=== PATIENT | female | born 2000 | race Two or more races ===

== ENCOUNTER 2023-08-23 01:41 | Observation (INO) | payer MEDICAID ==
[~2023-08-23] VITALS: Ht 162.6 cm; Wt 90.7 kg
[2023-08-23 03:12] LABS: Basophils # (auto) 0 10 ^3/uL (0-0.2); Basophils % (auto) 0.2 % (0.0-2.0); Eosinophils # (auto) 0.1 10 ^3/uL (0-0.8); Eosinophils % (auto) 0.7 % (0.0-7.0); Hematocrit 34.1 % (36.0-46.0); Hemoglobin 11.3 g/dL (12.2-16.2); Lymphocytes # (auto) 1.9 10 ^3/uL (0.4-5.4); Lymphocytes % (auto) 15.4 % (10.0-50.0); Mean Corpuscular Hemoglobin 30.6 pg (28.0-32.0); Mean Corpuscular Hgb Conc. 33.2 g/dL (32.0-36.0); Mean Corpuscular Volume 92.3 fL (80.0-100.0); Monocytes # (auto) 0.8 10 ^3/uL (0-1.3); Monocytes % (auto) 6.1 % (0.0-12.0); Neutrophils # (auto) 9.6 10 ^3/uL (1.6-8.6); Neutrophils % (auto) 77.6 % (37.0-80.0); Red Cell Distribution Width 14.2 % (11.8-14.3); White Blood Cell 12.4 10^3/uL (4.4-10.8)
[2023-08-23 03:13] LABS: Protein, Urine < 6.0 mg/dL (0.0-11.9)
[2023-08-23 03:14] LABS: Alanine Aminotransferase 14 U/L (7-40); Albumin 3.5 g/dL (3.2-4.8); Alkaline Phosphatase 111 U/L (46-116); Anion Gap 8 (5-15); Aspartate Aminotransferase 16 U/L (13-40); BUN/Creatinine Ratio 11.1 (10.0-20.0); Bilirubin, Total 0.3 mg/dL (0.2-1.0); Blood Urea Nitrogen 7 mg/dL (9-23); Calcium 8.8 mg/dL (8.7-10.4); Carbon Dioxide 20 mmol/L (20-30); Chloride 109 mmol/L (98-107); Glucose 111 mg/dL (74-106); Potassium 3.7 mmol/L (3.5-5.1); Sodium 137 mmol/L (136-145); Total Protein 5.6 g/dL (5.7-8.2); Uric Acid 4.7 mg/dL (3.1-7.8)
[2023-08-23 03:16] LABS: Amphetamine Screen, Urine Neg (NEGATIVE); Barbiturate Scree,Urine Neg (NEGATIVE); Benzodiazephine Screen, Urine Neg (NEGATIVE); Cannabinoid Screen, Urine Neg (NEGATIVE); Cocaine Screen, Urine Neg (NEGATIVE); Creatinine, Urine 37.04 mg/dL (30.0-125.0); Opiate Scree,Urine Neg (NEGATIVE); Phencyclidine Screen, Urine Neg (NEGATIVE); Urine Protein/Creatinine Ratio 0.16
[2023-08-23 03:28] LABS: Urine Bacteria MOD /hpf (None Seen); Urine Blood 2+ /uL (Negative); Urine Budding Yeast OCCASIONAL /hpf (None Seen); Urine Clarity Clear (Clear); Urine Color Light-Yellow (Yellow); Urine Hyaline Cast FEW /lpf (0 - 2); Urine Protein, UAD Negative (Negative); Urine Specific Gravity 1.006 (1.001-1.035); Urine Urobilinogen Normal (Negative); Urine WBC 2 /hpf (0 - 5)
[2023-08-23 03:33] LABS: INR 0.93 (0.9-1.15); Partial Thromboplastin Time 26.1 SEC (24.5-34.5); Prothrombin Time 9.9 sec (9.3-11.8)
== END 2023-08-23 04:44 | disposition home or self-care (01) ==
LOC: LDRP 01:41
PROVIDERS: ADMIT Obstetrics & Gynecology; ATTEND Obstetrics & Gynecology
DX: O21.2 Late vomiting of pregnancy (principal); O26.893 Other specified pregnancy related conditions, third trimester; M79.89 Other specified soft tissue disorders; Z79.899 Other long term (current) drug therapy; Z3A.36 36 weeks gestation of pregnancy
CPT/HCPCS: 36415; 59025; 80053; 80307; 81001; 81002; 82570; 84156; 84550; 85025; 85610; 85730; 94760; 96360; G0378

== ENCOUNTER 2023-08-30 10:14 | Observation (INO) | payer MEDICAID ==
[2023-08-30] MEDS ORDERED: PREN-96 PO (11:49)
[2023-08-30 12:05] LABS: Fern Testing Negative
== END 2023-08-30 13:30 | disposition home or self-care (01) ==
LOC: LDRP 10:14
PROVIDERS: ADMIT Obstetrics & Gynecology; ATTEND Obstetrics & Gynecology
DX: O42.92 Full-term premature rupture of membranes, unspecified as to length of time between rupture and onset of labor (principal); Z3A.37 37 weeks gestation of pregnancy
CPT/HCPCS: 59025; 76818; 81002; 84112; 94760; G0378; Q0114

== ENCOUNTER 2023-09-02 08:00 | Observation (INO) | payer MEDICAID ==
[~2023-09-02 08:00] MED LIST: PREN-96 PO
== END 2023-09-02 09:30 | disposition home or self-care (01) ==
LOC: LDRP 08:00 → UNDOADMOB 08:00 → LDRP 08:11 → UNDODISOB 09:30
PROVIDERS: ADMIT Obstetrics & Gynecology; ATTEND Obstetrics & Gynecology
DX: O41.03X0 Oligohydramnios, third trimester, not applicable or unspecified (principal); Z3A.36 36 weeks gestation of pregnancy
CPT/HCPCS: 59025; 76818; 81002; 94760; G0378

== ENCOUNTER 2023-09-06 13:50 | Observation (INO) | payer MEDICAID | END 2023-09-06 15:40 | disposition home or self-care (01) | LOC: LDRP 13:50 | PROVIDERS: ADMIT Obstetrics & Gynecology; ATTEND Obstetrics & Gynecology | DX: O41.03X0 Oligohydramnios, third trimester, not applicable or unspecified (principal); Z3A.38 38 weeks gestation of pregnancy | CPT/HCPCS: 59025; 76818; 81002; G0378 ==

== ENCOUNTER 2023-09-08 08:05 | Observation (INO) | payer MEDICAID | END 2023-09-08 09:42 | disposition home or self-care (01) | LOC: UNDOADMOB 08:05 → LDRP 08:05 → UNDODISOB 09:42 | PROVIDERS: ADMIT Obstetrics & Gynecology; ATTEND Obstetrics & Gynecology | DX: O41.03X0 Oligohydramnios, third trimester, not applicable or unspecified (principal); Z3A.38 38 weeks gestation of pregnancy | CPT/HCPCS: 59025; 76818; 81002; 94760; G0378 ==

== ENCOUNTER 2023-09-13 07:49 | Observation (INO) | payer MEDICAID | END 2023-09-13 13:27 | disposition home or self-care (01) | LOC: LDRP 12:07 | PROVIDERS: ADMIT Obstetrics & Gynecology; ATTEND Obstetrics & Gynecology | DX: O41.03X0 Oligohydramnios, third trimester, not applicable or unspecified (principal); O62.9 Abnormality of forces of labor, unspecified; Z3A.39 39 weeks gestation of pregnancy | CPT/HCPCS: 59025; 76818; 81002; 94760; G0378 ==

== ENCOUNTER 2023-09-16 14:59 | Observation (INO) | payer MEDICAID ==
[~2023-09-16] VITALS: Ht 162.6 cm; Wt 72.6 kg
[2023-09-16] MEDS: LACTATED RINGER'S 1,000 ML IV ONE (18:55)
== END 2023-09-16 20:55 | disposition home or self-care (01) ==
LOC: UNDOADMOB 16:16 → LDRP 16:16 → UNDODISOB 20:55
PROVIDERS: ADMIT Obstetrics & Gynecology; ATTEND Obstetrics & Gynecology
DX: O41.03X0 Oligohydramnios, third trimester, not applicable or unspecified (principal); O62.9 Abnormality of forces of labor, unspecified; Z3A.39 39 weeks gestation of pregnancy
CPT/HCPCS: 59025; 76815; 76818; 81002; 94760; 96360; 96361; G0378

== ENCOUNTER 2023-09-17 19:28 | Inpatient (IN) | payer MEDICAID ==
[~2023-09-17] VITALS: Ht 162.6 cm; Wt 72.6 kg
[2023-09-17] MEDS ORDERED: LIDOCAINE 2%HCL (LOCAL ANESTH.) INJ 20ML MDV IJ PRN (22:00)
[2023-09-17] MEDS ORDERED: BUTORPHANOL TARTRATE 2 MG/1 ML VIAL IV PRN ×2 (22:00)
[2023-09-17 22:50] LABS: Urine Bacteria MANY /hpf (None Seen); Urine Blood 2+ /uL (Negative); Urine Clarity Clear (Clear); Urine Hyaline Cast FEW /lpf (0 - 2); Urine Protein, UAD Negative (Negative); Urine Specific Gravity 1.004 (1.001-1.035); Urine Urobilinogen Normal (Negative); Urine WBC 1 /hpf (0 - 5); Urine pH 6.5 (5.0-9.0)
[2023-09-17 22:51] LABS: Urine Color Straw (Yellow)
[2023-09-17 22:53] LABS: Basophils # (auto) 0 10 ^3/uL (0-0.2); Basophils % (auto) 0.3 % (0.0-2.0); Eosinophils # (auto) 0.1 10 ^3/uL (0-0.8); Eosinophils % (auto) 0.4 % (0.0-7.0); Hematocrit 34.7 % (36.0-46.0); Hemoglobin 11.7 g/dL (12.2-16.2); Lymphocytes # (auto) 2.2 10 ^3/uL (0.4-5.4); Lymphocytes % (auto) 17.2 % (10.0-50.0); Mean Corpuscular Hgb Conc. 33.8 g/dL (32.0-36.0); Mean Corpuscular Volume 91.8 fL (80.0-100.0); Monocytes # (auto) 0.7 10 ^3/uL (0-1.3); Monocytes % (auto) 5.2 % (0.0-12.0); Neutrophils # (auto) 9.7 10 ^3/uL (1.6-8.6); Neutrophils % (auto) 76.9 % (37.0-80.0); Red Blood Cells 3.78 10^6/uL (4.0-5.20); Red Cell Distribution Width 14.1 % (11.8-14.3); White Blood Cell 12.7 10^3/uL (4.4-10.8)
[2023-09-17 23:01] LABS: Amphetamine Screen, Urine Neg (NEGATIVE); Barbiturate Scree,Urine Neg (NEGATIVE); Benzodiazephine Screen, Urine Neg (NEGATIVE); Cannabinoid Screen, Urine Neg (NEGATIVE); Cocaine Screen, Urine Neg (NEGATIVE); Opiate Scree,Urine Neg (NEGATIVE); Phencyclidine Screen, Urine Neg (NEGATIVE)
[2023-09-17] MEDS: LACTATED RINGER'S 1,000 ML IV SCH (23:01)
[2023-09-17 23:04] LABS: INR 0.94 (0.9-1.15); Partial Thromboplastin Time 26.8 SEC (24.5-34.5)
[2023-09-17 23:05] LABS: Alanine Aminotransferase 12 U/L (7-40); Albumin 3.6 g/dL (3.2-4.8); Alkaline Phosphatase 122 U/L (46-116); Anion Gap 14 (5-15); Aspartate Aminotransferase 16 U/L (13-40); Bilirubin, Total 0.3 mg/dL (0.2-1.0); Calcium 9.5 mg/dL (8.7-10.4); Carbon Dioxide 18 mmol/L (20-30); Chloride 110 mmol/L (98-107); Glucose 107 mg/dL (74-106); Potassium 3.9 mmol/L (3.5-5.1); Sodium 142 mmol/L (136-145); Total Protein 5.8 g/dL (5.7-8.2)
[2023-09-17 23:19] LABS: BUN/Creatinine Ratio 7.5 (10.0-20.0); Blood Urea Nitrogen < 5 mg/dL (9-23)
[2023-09-18] MEDS: miSOPROStol 50 MCG per PRE-CUT 1/2 TAB PO PRN (00:32)
[2023-09-18] MEDS ORDERED: WITCH HAZEL-GLYCERIN PAD TOP PRN (16:15)
[2023-09-18] MEDS: OXYTOCIN 20 UNT in SODIUM CHLORIDE 0.9% 1,000 ML IV ONE (16:15)
[2023-09-18] MEDS ORDERED: LIDOCAINE 2%HCL (LOCAL ANESTH.) INJ 20ML MDV IJ PRN (16:15)
[2023-09-18] MEDS ORDERED: TERBUTALINE SULFATE 1 MG/ML 1ML VIAL SC PRN (16:15)
[2023-09-18] MEDS ORDERED: DERMOPLAST 60ML BOTTLE TOP PRN (16:15)
[2023-09-18] MEDS ORDERED: PHISODERM TOP SOLN 240ML BTL TOP PRN (16:15)
[2023-09-18] MEDS: LACT. RINGERS/OXYTOCIN 20UNITS 500 ML IV ONE (16:15)
[2023-09-18] MEDS: LACT. RINGERS/OXYTOCIN 20UNITS 1,000 ML IV SCH (17:09)
[2023-09-18] MEDS: DERMOPLAST 60ML BOTTLE TOP PRN (19:29)
[2023-09-18] MEDS: PHISODERM TOP SOLN 240ML BTL TOP PRN (19:29)
[2023-09-18] MEDS: WITCH HAZEL-GLYCERIN PAD TOP PRN (19:29)
[2023-09-18] MEDS: NALOXONE HCL 0.4 MG/ML VIAL IV ONE (21:15)
[2023-09-18] MEDS: LACTATED RINGER'S 1,000 ML IV ONE (21:15)
[2023-09-18] MEDS: ROPIVACAINE HCL 200 ML ONE (21:55)
[2023-09-18] MEDS: TERBUTALINE SULFATE 1 MG/ML 1ML VIAL SC ONE (23:04)
[2023-09-19] VITALS (20 sets, daily range): BP systolic 93–116; BP diastolic 51–92; PULSE 56–90; RESP 16–19; TEMP 98.2–99.6; O2SAT 92–100
[2023-09-19] MEDS ORDERED: PIPERACILLIN-TAZOB 3.375GM 100 ML IV SCH (04:15)
[2023-09-19] MEDS: ACETAMINOPHEN IV 100 ML IV ONE (04:19)
[2023-09-19] MEDS: PIPERACILLIN-TAZOB 3.375GM 100 ML IV SCH (04:59)
[2023-09-19] MEDS: LACTATED RINGER'S 1,000 ML IV ONE (05:00)
[2023-09-19] MEDS: ceFAZolin 2 GM/D5W50ml 50 ML IV ONE (05:00)
[2023-09-19] MEDS: LIDOCAINE HCL 2 %PF INJ 10ML AMP IJ ONE (05:14)
[2023-09-19] MEDS: SODIUM CHLORIDE 0.9% 1,000 ML IUPC SCH (05:18)
[2023-09-19] MEDS: SODIUM CHLORIDE 0.9% 300 ML IUPC ONE (05:18)
[2023-09-19] MEDS ORDERED: HYDROmorphone HCL 2 MG/ML VL/or syr IV PRN (05:30)
[2023-09-19] MEDS ORDERED: ePHEDrine SULFATE 50 MG/ML AMP IV PRN (05:30)
[2023-09-19] MEDS ORDERED: ONDANSETRON HCL 4 MG/2 ML VIAL IV PRN (05:30)
[2023-09-19] MEDS ORDERED: MORPHINE SULF PF 5 MG/10 ML VIAL ONE (05:52)
[2023-09-19] MEDS ORDERED: fentaNYL CITRATE 100 MCG/2 ML VL ONE (05:58)
[2023-09-19] MEDS: METHYLERGONOVINE MALEATE 0.2 MG/ML AMP IM ONE (05:58)
[2023-09-19] MEDS ORDERED: MIDAZOLAM HCL 2MG/2ML 2ml VIAL (1mg/ml) ONE (05:58)
[2023-09-19] MEDS ORDERED: PROPOFOL 10 MG/ML 20 ML IV ONE (06:01)
[2023-09-19] MEDS ORDERED: KETOROLAC TROMETH 30 MG/ML 1ML VIAL ONE (06:07)
[2023-09-19] MEDS ORDERED: ONDANSETRON HCL 4 MG/2 ML VIAL ONE (06:07)
[2023-09-19] MEDS: ACETAMINOPHEN IV 1000 MG/100ML (10MG/ML) IV ONE (06:55)
[2023-09-19] MEDS: ePHEDrine SULFATE 50 MG/ML AMP IV ONE ×2 (06:56)
[2023-09-19 07:07] LABS: RPR Non Reactive (Non Reactive)
[2023-09-19] MEDS: KETOROLAC TROMETH 30 MG/ML 1ML VIAL IV PRN (16:03)
[2023-09-19] MEDS: ACETAMINOPHEN IV 1000 MG/100ML (10MG/ML) IV PRN (22:15)
[2023-09-20] VITALS (12 sets, daily range): BP systolic 93–118; BP diastolic 55–80; PULSE 70–96; RESP 16–20; TEMP 98–98.7; O2SAT 95–99
[2023-09-20] MEDS ORDERED: HYDROcodone-ACET 5/325MG TAB PO PRN (07:00)
[2023-09-20] MEDS ORDERED: IBUPROFEN 800 MG TAB PO PRN (07:00)
[2023-09-20] MEDS: HYDROcodone-ACET 5/325MG TAB PO PRN (08:22)
[2023-09-20] MEDS: SIMETHICONE 80 MG CHEWABLE TABLET PO SCH ×2 (08:22→12:44)
[2023-09-20] MEDS: DOCUSATE CALCIUM 240 MG CAP PO SCH (10:00)
[2023-09-20] MEDS: IBUPROFEN 800 MG TAB PO PRN (12:44)
[2023-09-21 03:00] VITALS: BP 114/71; PULSE 82; RESP 18; TEMP 98.9; O2SAT 97
[2023-09-21] MEDS ORDERED: CEPH250C PO (06:33)
[2023-09-21] MEDS ORDERED: DOCU-94 PO (06:33)
[2023-09-21] MEDS ORDERED: HYDR1TAB97 PO (06:33)
[2023-09-21 07:00] VITALS: BP 114/58; PULSE 75; RESP 18; TEMP 98.9; O2SAT 98
[2023-09-21] MEDS ORDERED: HYDR-4902 PO (07:17)
[2023-09-21] MEDS ORDERED: IBUP-1455 PO (07:17)
[2023-09-21 08:56] LABS: Basophils # (auto) 0 10 ^3/uL (0-0.2); Basophils % (auto) 0.3 % (0.0-2.0); Eosinophils # (auto) 0.1 10 ^3/uL (0-0.8); Eosinophils % (auto) 0.9 % (0.0-7.0); Hematocrit 28.4 % (36.0-46.0); Hemoglobin 9.5 g/dL (12.2-16.2); Lymphocytes # (auto) 2.3 10 ^3/uL (0.4-5.4); Lymphocytes % (auto) 18.5 % (10.0-50.0); Mean Corpuscular Hemoglobin 30.9 pg (28.0-32.0); Mean Corpuscular Hgb Conc. 33.4 g/dL (32.0-36.0); Mean Corpuscular Volume 92.6 fL (80.0-100.0); Monocytes # (auto) 0.6 10 ^3/uL (0-1.3); Monocytes % (auto) 4.7 % (0.0-12.0); Neutrophils # (auto) 9.4 10 ^3/uL (1.6-8.6); Neutrophils % (auto) 75.6 % (37.0-80.0); Red Blood Cells 3.07 10^6/uL (4.0-5.20); White Blood Cell 12.4 10^3/uL (4.4-10.8)
[2023-09-21] MEDS: HYDROcodone-ACET 5/325MG TAB PO PRN (09:24)
[2023-09-21] MEDS: MEASLES, MUMPS & RUBELLA VAC(MMRII) 0.5ML SC ONE (09:25)
[2023-09-21] MEDS: TETANUS-DIPTH-ACEL PERTUSSIS 0.5ML SYR Tdap IM ONE (09:26)
[2023-09-21 19:06] LABS: Treponema pallidum Ab (FTA-Ab) Non Reactive (Non Reactive)
== END 2023-09-21 10:15 | disposition home or self-care (01) | DRG 540 ==
LOC: LDRP 19:28 → OBSVTOIN 21:39 → LDRP 22:11
PROVIDERS: ADMIT Obstetrics & Gynecology; ATTEND Obstetrics & Gynecology
PROC: 3E0DXGC Introduction of Other Therapeutic Substance into Mouth and Pharynx, External Approach (ICD-10-PCS; 2023-09-19)
PROC: 10D00Z1 Extraction of Products of Conception, Low, Open Approach (ICD-10-PCS; principal; 2023-09-19 05:38)
DX: O33.9 Maternal care for disproportion, unspecified (principal); O41.1230 Chorioamnionitis, third trimester, not applicable or unspecified; O61.9 Failed induction of labor, unspecified; O62.0 Primary inadequate contractions; O77.0 Labor and delivery complicated by meconium in amniotic fluid; Z37.0 Single live birth; Z3A.39 39 weeks gestation of pregnancy
CPT/HCPCS: 36415; 59025; 62282; 76815; 76818; 80053; 80307; 81001; 81002; 85025; 85610; 85730; 86592; 86803; 86850; 86900; 86901; 90715; 94760; 94762; 96360; 96361; 96365; 96366; 96372; G0378; J0131; J1885; J2250; J2405; J2543; J2590; J2704

== ENCOUNTER → 2023-11-23 | Outpatient (CLI) | payer MEDICAID ==
[~2023-11-23] MED LIST changes: +CEPH250C PO; +DOCU-94 PO; +HYDR-4902 PO; +IBUP-1455 PO
== END | disposition home or self-care (01) ==
LOC: LAB 11:48
PROVIDERS: ATTEND Obstetrics & Gynecology
DX: N39.0 Urinary tract infection, site not specified (principal)
CPT/HCPCS: 87086